=== PATIENT | female | born 1955 | race Caucasian/White ===

== ENCOUNTER → 2021-03-11 | Outpatient (CLI) | payer MEDICARE ==
[2021-03-11 14:40] LABS: Source, Urine Clean Catch
[2021-03-11 15:39] LABS: Appearance, Urine Clear (Clear); Bilirubin, Urine Neg (Neg); Blood, Urine 2+ (Neg); Color, Urine Yellow (P-Yellow); Glucose Qualitative, Urine Neg (Neg); Ketones, Urine Neg (Neg); Leukocyte Esterase, Urine 1+ (Neg); Nitrite, Urine Neg (Neg); Protein, Urine 1+ (Neg); Urobilinogen, Urine NORM (Normal)
[2021-03-11 15:52] LABS: Bacteria Mod /hpf; Squamous Epithelial Cells Rare /hpf (Few); White Blood Cells, Urine 0-2 /hpf (0-5)
== END | disposition home or self-care (01) ==
LOC: LAB 14:38 → LAB SHORT 14:38
PROVIDERS: Family Medicine
DX: R82.998 Other abnormal findings in urine (principal)
CPT/HCPCS: 81001; 87086

== ENCOUNTER → 2022-09-25 | Outpatient (CLI) | payer MEDICARE | END | disposition home or self-care (01) | LOC: LAB SHORT 10:00 → LAB 10:00 | DX: R10.13 Epigastric pain (principal) | CPT/HCPCS: 87338 ==

== ENCOUNTER → 2023-04-23 | Outpatient (CLI) | payer MEDICARE ==
[2023-04-23 19:10] LABS: Creatinine, Urine Random 34.1 mg/dL (27.00-270.00)
[2023-04-23 19:13] LABS: Microalbumin, Random Urine 37.1 mg/L (0.000-20.000)
== END ==
LOC: LAB 15:10 → LAB SHORT 15:10
PROVIDERS: Family Medicine
DX: E11.9 Type 2 diabetes mellitus without complications (principal)
CPT/HCPCS: 82043; 82570

== ENCOUNTER → 2023-04-29 | Outpatient (CLI) | payer MEDICARE | LOC: LAB SHORT 15:34 → LAB 15:34 | DX: N39.0 Urinary tract infection, site not specified (principal) | CPT/HCPCS: 87077; 87086; 87186 ==

== ENCOUNTER → 2023-11-02 | Outpatient (CLI) | payer MEDICARE | LOC: LAB 09:50 → LAB SHORT 09:50 | DX: R30.0 Dysuria (principal) | CPT/HCPCS: 87102 ==